=== PATIENT | female | born 1955 | race Caucasian/White ===

== ENCOUNTER 2016-08-03 07:40 | Day surgery (SDC) | payer OTHER ==
[~2016-08-03] VITALS: Ht 154.9 cm; Wt 67.1 kg
[2016-08-03 08:27] VITALS: Ht 154.9 cm; Wt 67.1 kg
[2016-08-03] MEDS ORDERED: OMEP10CA4 PO (08:34)
[2016-08-03 08:52] VITALS: BP 131/67; PULSE 67; RESP 16
[2016-08-03] MEDS ORDERED: MIDAZOLAM 1 MG/ML 2 ML INJ ONE ×2 (10:09)
[2016-08-03] MEDS ORDERED: FENTAnyl 50 MCG/ML VIAL ONE (10:09)
[2016-08-03 10:50] VITALS: BP 107/64; PULSE 74; RESP 22
--- NOTE | 2016-08-03 13:06 | GILP ---
DATE OF PROCEDURE: 08/03/2016 NAME OF PROCEDURES: 1. Esophagogastroduodenoscopy and biopsy. 2. Colonoscopy. SURGEON: Rg Robles MD PREOPERATIVE DIAGNOSES 1. Screening colonoscopy. 2. Dysphagia. POSTOPERATIVE DIAGNOSES: 1. Gastroesophageal reflux disease. 2. Gastritis. 3. Gastric mucosal biopsies were taken for Helicobacter pylori test. 4. Poor prep making the colonoscopic examination inadequate and suboptimal. 5. Redundant colon and cecum could not be reached. INDICATION FOR THE PROCEDURE: Ms. Malena Marrero is a 61-year-old female patient who had chronic heartburn and dysphagia. She also needed screening colonoscopy. The procedures and possible complications were well explained to the patient, she understood and con sented to the procedure. DESCRIPTION OF PROCEDURE: Under the influence of fentanyl and Versed, the gastroscope was carefully introduced into the esophagus and under direct vision, it was advanced to the stomach and through t he pylorus into the duodenal bulb and descending duodenum. FINDINGS: ESOPHAGUS: The patient had gastroesophageal reflux disease. There was no stricture or tumor. STOMACH: The patient had gastritis. Gastric mucosal biopsies were taken for H. pylori test. DUODENUM: Normal. The colonoscope was carefully introduced in the rectum and under direct vision, it was advanced to t he whole length of the scope. The patient had a very poor prep making the exam inadequate and subop timal. She also had redundant colon and the cecum could not be reached. The patient tolerated the procedures very well and there was no complication from the procedures. A t the end of the procedures, she was awake with stable vital signs and she was discharged home to [facility] care of her family. IMPRESSION: Please see postop diagnoses. PLAN: 1. Continue omeprazole. 2. MiraLax 17 grams dissolved in a glass of water p.o. daily. 3. Elective barium enema for the evaluation of the proximal part of the colon. Dictated By: RG OMALLEY/TATIANA Conf#: [id number] DID#: [id number]
== END 2016-08-03 12:16 | disposition home or self-care (01) ==
LOC: GIL 07:40
PROVIDERS: ATTEND Internal Medicine Gastroenterology
DX: Z12.11 Encounter for screening for malignant neoplasm of colon (principal); R13.10 Dysphagia, unspecified; K21.9 Gastro-esophageal reflux disease without esophagitis; K29.70 Gastritis, unspecified, without bleeding; Q43.8 Other specified congenital malformations of intestine
CPT/HCPCS: 43239; 45378; 87081; J2250; J3010; Z7610

== ENCOUNTER 2016-09-02 10:02 | Emergency (ER) | payer OTHER ==
[~2016-09-02] VITALS: Ht 162.6 cm; Wt 62.0 kg
[~2016-09-02 10:02] MED LIST: OMEP10CA4 PO
[2016-09-02 10:04] VITALS: Ht 162.6 cm; Wt 62.0 kg
--- NOTE | 2016-09-02 11:01 | ERD ---
ER Documentation Chief Complaint Date/Time DATE: 09/02/16 TIME: 10:59 Chief Complaint pt bib family with c/o cough x 2 months already seen PMD HPI This is a 61-year-old female who presents to the emergency department today complaining of a productive cough for the past month. Patient had what he seen her primary care doctor and was given medication. States she is unsure what the medication is. States she has tried dsak-upa-smzlova Robitussin that has had no improvement. Denies any fevers or chills. ROS All systems reviewed and are negative except as per history of present illness. Medications Home Meds Active Scripts Cetirizine Hcl* (Zyrtec*) 10 Mg Capsule, 10 MG PO DAILY, #10 TAB.CHEW Prov:MIGUEL TRAN-C 09/02/16 Benzonatate* (Tessalon Perle*) 100 Mg Capsule, 100 MG PO Q8H Y for COUGH for 7 Days, CAP Prov:PROMIGUEL GEORGES-C 09/02/16 Guaifenesin (Mucinex) 1,200 Mg Tab.er.12h, 1200 MG PO BID for 7 Days, TAB Prov:MIGUEL TRAN-C 09/02/16 Azithromycin* (Zithromax*) 250 Mg Tablet, 250 MG PO .TishaPACK DIRECTED, #6 TAB TAKE 500 MG (2 TABS) THE FIRST DAY THEN 250 MG (1 TAB) DAYS 2-5 Prov:MIGUEL TRAN-C 09/02/16 Reported Medications Omeprazole* (Omeprazole*) 10 Mg Capsule.dr, 10 MG PO DAILY, #30 CAP 08/03/16 [none] No Conflict Check 09/15/09 Allergies Allergies: Coded Allergies: No Known Allergies (Verified Allergy, Mild, 09/02/16) PMhx/Soc History of Surgery: Yes (chlolecystectomy-8 years ago) Anesthesia Reaction: No Hx Neurological Disorder: No Hx Respiratory Disorders: No Hx Cardiac Disorders: No Hx Psychiatric Problems: No Hx Miscellaneous Medical Probl: No Hx Alcohol Use: No Hx Substance Use: No Hx Tobacco Use: No Smoking Status: Never smoker Physical Exam Vitals Vital Signs Date Time Temp Pulse Resp B/P Pulse Ox O2 Delivery O2 Flow Rate FiO2 09/02/16 10:04 98.3 84 16 157/62 98 Physical Exam Const: No acute distress Head: Atraumatic Eyes: Normal Conjunctiva ENT: Normal External Ears, Nose and Mouth. Neck: Full range of motion..~ No meningismus. Resp: Clear to auscultation bilaterally. No absent breath sounds. No wheezing. Cardio: Regular rate and rhythm, no murmurs Abd: Soft, non tender, non distended. Normal bowel sounds Skin: No petechiae or rashes Neur: Awake and alert Psych: Normal Mood and Affect Results 24 hrs Patient: DIO HANDLEY : 1955 Age: 61 Sex: F MR #: [id number] DOS: 09/02/16 0000 Ordering MD: MIGUEL TRAN PA-C Location: [facility] Room/Bed: PROCEDURE: XR Chest AP portable CLINICAL INDICATION: Cough x1 month TECHNIQUE: An AP portable radiograph of the chest was submitted. COMPARISON: None. FINDINGS: Support Hardware: None Cardiovascular: The cardiovascular silhouette appears unremarkable. Lung Gramajo: The lung gramajo appear clear with no nodule, alveolar infiltrate, or interstitial prominence evident. Pleural Spaces: No pneumothorax or pleural effusion is identified. Osseous Structures: The osseous structures appear intact. Soft Tissues: The soft tissues appear unremarkable. IMPRESSION: Unremarkable portable chest. Physician Ramona Date Time Electronically viewed and signed by Physician Ramona on 09/02/2016 11:25 RH/ CC: MIGUEL TRAN PA-C Procedures/MDM This is a 61-year-old female who presents to the emergency department today complaining of a cough for the past month. Patient had been seen by her primary care doctor was given medication however she was unsure what it is. I did obtain a chest x-ray today Chest x-ray is negative. Low suspicion for pneumonia, PE, abscess,, pleural effusion pneumothorax. Patient is afebrile and otherwise well-appearing. Her oxygen saturation 98%. Her respirations are 16. She has no wheezing on physical exam. I do not feel the patient requires a breathing treatment at this time. Patient has a cough of uncertain etiology at this time however patient will be given a prescription for azithromycin to treat possible bronchitis versus pertussis. Patient also be given a prescription for Zyrtec, Mucinex and Tessalon Perles. At this time the patient is stable for discharge and outpatient management. Patient should follow up with their PCP in the next 1-2 days for referral to pulmonology. They may return to the emergency department sooner for any persistent or worsening of symptoms. Patient understood and agreed with the plan. Departure Diagnosis: Primary Impression: Cough Condition: MIGUEL Diamond PA-C Sep 02, 2016 11:01
--- NOTE | 2016-09-02 11:25 | RADRPT ---
PROCEDURE: XR Chest AP portable CLINICAL INDICATION: Cough x1 month TECHNIQUE: An AP portable radiograph of the chest was submitted. COMPARISON: None. FINDINGS: Support Hardware: None Cardiovascular: The cardiovascular silhouette appears unremarkable. Lung Sifuentes: The lung sifuentes appear clear with no nodule, alveolar infiltrate, or interstitial promi nence evident. Pleural Spaces: No pneumothorax or pleural effusion is identified. Osseous Structures: The osseous structures appear intact. Soft Tissues: The soft tissues appear unremarkable. IMPRESSION: Unremarkable portable chest. Physician Ramona Date Time Electronically viewed and signed by Serafin Mercer Physician on 09/02/2016 11:25 RH/
[2016-09-02] MEDS ORDERED: BENZ100C70 PO (12:17)
[2016-09-02] MEDS ORDERED: AZIT250T94 PO (12:17)
[2016-09-02] MEDS ORDERED: GUAI120011 PO (12:17)
[2016-09-02] MEDS ORDERED: CETI10CA PO (12:18)
[2016-09-02 12:26] VITALS: BP 148/67; PULSE 80; RESP 16; TEMP 98.3
== END 2016-09-02 12:26 | disposition home or self-care (01) ==
LOC: FTE 10:02
DX: R05 Cough (principal)
CPT/HCPCS: 71010; Z7502

== ENCOUNTER 2016-10-02 08:17 | Emergency (ER) | payer OTHER ==
[~2016-10-02] VITALS: Wt 70.0 kg
[~2016-10-02 08:17] MED LIST changes: +AZIT250T94 PO; +BENZ100C70 PO; +CETI10CA PO; +GUAI120011 PO
[2016-10-02] MEDS ORDERED: ONDANSETRON 4 MG INJ IV STA (08:41)
[2016-10-02] MEDS ORDERED: morphine 4 MG/ML VIAL IV STA (08:41)
--- NOTE | 2016-10-02 08:53 | ERD ---
ER Documentation Chief Complaint Date/Time DATE: 10/02/16 TIME: 08:43 Chief Complaint right flank pain for 3 days with nausea no vomiting. no hematuria HPI This is a 61-year-old Faroese-speaking female with no past medical history that presents to the emergency department complaining of right flank pain for the past 3 days. The patient states that the pain is worse at night. She has taken tigh-nxc-ihgljef analgesic medication with no improvement of her symptoms. She stated that just prior to arrival the pain began to radiate to her right lower quadrant. She denies any dysuria or gross hematuria but has complained of urinary frequency for the past 3 days. The patient indicated she had a recent colonoscopy 3 months prior to arrival but does not know the results. She has no shortness of breath at rest or exertion. She denies any chest pain or pressure. She states that the pain is a sharp shooting pain. She states there is no alleviating or exacerbating factors. She has had no fevers shaking no chills. She denies any hemoptysis hematemesis or melanotic stools. She denies any nausea. She denies any recent or remote trauma ROS All systems reviewed and are negative except as per history of present illness. Medications Home Meds Discontinued Reported Medications Omeprazole* (Omeprazole*) 10 Mg Capsule.dr, 10 MG PO DAILY, #30 CAP 08/03/16 [none] No Conflict Check 09/15/09 Discontinued Scripts Cetirizine Hcl* (Zyrtec*) 10 Mg Capsule, 10 MG PO DAILY, #10 TAB.CHEW Prov:MIGUEL TRAN-C 09/02/16 Benzonatate* (Tessalon Perle*) 100 Mg Capsule, 100 MG PO Q8H Y for COUGH for 7 Days, CAP Prov:PROMIGUEL GEORGES-C 09/02/16 Guaifenesin (Mucinex) 1,200 Mg Tab.er.12h, 1200 MG PO BID for 7 Days, TAB Prov:MIGUEL TRAN-C 09/02/16 Azithromycin* (Zithromax*) 250 Mg Tablet, 250 MG PO .GOLD DIRECTED, #6 TAB TAKE 500 MG (2 TABS) THE FIRST DAY THEN 250 MG (1 TAB) DAYS 2-5 Prov:MIGUEL TRAN-C 09/02/16 Allergies Allergies: Coded Allergies: No Known Allergies (Verified Allergy, Mild, 09/02/16) PMhx/Soc History of Surgery: Yes (chlolecystectomy-8 years ago) Anesthesia Reaction: No Hx Neurological Disorder: No Hx Respiratory Disorders: No Hx Cardiac Disorders: No Hx Psychiatric Problems: No Hx Miscellaneous Medical Probl: No Hx Alcohol Use: No Hx Substance Use: No Hx Tobacco Use: No Smoking Status: Never smoker Physical Exam Vitals Vital Signs Date Time Temp Pulse Resp B/P Pulse Ox O2 Delivery O2 Flow Rate FiO2 10/02/16 08:20 98.0 69 21 160/81 99 Physical Exam Constitutional:Well-developed. Well-nourished. HEENT:Normocephalic. Atraumatic.Pupils were equal round reactive to light. Moist mucous membranes.No tonsillar exudates. Neck: No nuchal rigidity. No lymphadenopathy. No posterior cervical spine tenderness or step-offs. Respiratory: Not using accessory muscles of respiration.Lungs were clear to auscultation bilaterally. No rhonchi. No rales. No wheezing. Cardiovascular: Regular rate regular rhythm.No murmurs. No rubs were appreciated.S1, S2 normal. Distal pulses are palpable 2+ bilaterally. GI: Abdomen was soft. Right CVA tenderness with minimal tenderness in the right lower quadrant with negative psoas and obturator sign. Non Distended. No pulsatile abdominal masses or bruits. No rebound. No guarding. Bowel sounds were present and normal. Muscle skeletal: Full range of motion of both the upper and lower extremities bilaterally.Normal muscle tone.No assymetrical calf tenderness or swelling. No tenderness to palpation or percussion of the thoracic or lumbar spinous processes Skin: No petechia, no purpura. No lesions on the palms or the soles of the feet. No maculopapular rash. NEURO: Patient was alert, awake, orientated x3.No facial droop. Gait observed and normal with no ataxia.Speech had regular rate and rhythm. No focal neurological deficits. Result Diagram: 10/02/1685410/02/1655 Results 24 hrs Laboratory Tests Test 10/02/16 08:50 10/02/16 08:55 Urine Color LT. YELLOW Urine Clarity CLEAR Urine pH 5.5 Urine Specific [place] 1.010 Urine Ketones NEGATIVE Urine Nitrite NEGATIVE Urine Bilirubin NEGATIVE Urine Urobilinogen 0.2 E.U./dL Urine Leukocyte Esterase TRACE Urine Microscopic RBC 0-2/HPF Urine Microscopic WBC 0-2/HPF Urine Epithelial Cells FEW Urine Bacteria FEW Urine Hemoglobin NEGATIVE Urine Glucose NEGATIVE% Urine Total Protein NEGATIVE White Blood Count 5.210^3/ul Red Blood Count 4.5310^6/ul Hemoglobin 13.9g/dl Hematocrit 39.9% Mean Corpuscular Volume 88.1fl Mean Corpuscular Hemoglobin 30.7pg Mean Corpuscular Hemoglobin Concent 34.8g/dl Red Cell Distribution Width 11.9% Platelet Count 14378^3/UL Mean Platelet Volume 10.1fl Neutrophils % 64.1% Lymphocytes % 24.3% Monocytes % 8.5% Eosinophils % 2.5% Basophils % 0.4% Nucleated Red Blood Cells % 0.0/100WBC Neutrophils # 3.310^3/ul Lymphocytes # 1.310^3/ul Monocytes # 0.410^3/ul Eosinophils # 0.110^3/ul Basophils # 0.010^3/ul Nucleated Red Blood Cells # 0.010^3/ul Prothrombin Time 12.6Sec Prothrombin Time Ratio 1.0 INR International Normalized Ratio 0.94 Activated Partial Thromboplast Time 29.5Sec Sodium Level 139mmol/L Potassium Level 3.7mmol/L Chloride Level 107mmol/L Carbon Dioxide Level 24mmol/L Anion Gap 12 Blood Urea Nitrogen 11mg/dl Creatinine 0.66mg/dl Glucose Level 113mg/dl Calcium Level 9.3mg/dl Total Bilirubin 0.5mg/dl Direct Bilirubin 0.00mg/dl Indirect Bilirubin 0.5mg/dl Aspartate Amino Transf (AST/SGOT) 37IU/L Alanine Aminotransferase (ALT/SGPT) 39IU/L Alkaline Phosphatase 81IU/L Troponin I < 0.012ng/ml Total Protein 8.1g/dl Albumin 4.1g/dl Globulin 4.00g/dl Albumin/Globulin Ratio 1.02 Amylase Level 66U/L Lipase 43U/L Current Medications Medications (Trade) Dose Ordered Sig/Sandra Route PRN Reason Start Time Stop Time Status Last Admin Dose Admin Morphine Sulfate (morphine) 4 mg ONCE STAT IV 10/02/16 08:41 10/02/16 08:43 DC 10/02/16 09:01 Ondansetron HCl (Zofran Inj) 4 mg ONCE STAT IV 10/02/16 08:41 10/02/16 08:43 DC 10/02/16 09:01 IV Flush 10 ml 10 ml STK-MED ONCE .ROUTE 10/02/16 10:16 10/02/16 10:17 DC Sodium Chloride (NS) 100 ml @ ud STK-MED ONCE .ROUTE 10/02/16 10:16 10/02/16 10:17 DC Iohexol (Omnipaque 300mg/ ml) 150 ml STK-MED ONCE .ROUTE 10/02/16 10:16 10/02/16 10:17 DC Procedures/MDM This patient presented to the emergency department with abdominal pain and was seen and evaluated by myself. My differential diagnosis included but was not limited to abdominal aortic aneurysm, appendicitis, pancreatitis, perforated peptic ulcer, perforated viscus, Boerhaaves syndrome or visceral pain such as diverticulitis, DKA, esophagitis, hepatitis or bowel obstruction. The patient was placed on a field research assistant, continuous pulse oximetry, and IV access was established by nursing staff. 12 Lead EKG tracing ordered and reviewed by myself showed: Normal sinus rhythm of 60 bpm and no arrhythmia. PA interval normal. QRS duration normal. No ST segment elevation No ST segment depression. No changes consistent with acute ischemia. I reviewed the patient's medical records and the patient had an upper endoscopy with biopsy and colonoscopy performed August 03, 2016. The patient had gastritis and biopsies have been taken for H. pylori. The patient had a redundant colon and the cecum could not be reached. The patient does have an appointment on October 03, 2016 at 9:10 AM, tomorrow with her primary care physician at [facility] with Dr. Herrmann. I obtained a CT scan of the abdomen with IV contrast given that the patient did have tenderness in the right lower quadrant there is no evidence of appendicitis. CT scan was reviewed by both myself and the radiologist and the patient had a previous cholecystectomy but there was also no evidence of bowel obstruction and the patient did not have peritoneal signs to suggest a surgical abdomen on my physical exam. The patient had no leukocytosis or electrolyte abnormalities. There is no evidence of a urinary tract infection as the patient had been complaining of frequency the patient's pain had improved with intravenous morphine and Zofran. I did indicate to the patient that this could be muscle skeletal in origin but I did not have an exact etiology into the cause of the patient's pain. They will follow up with her primary care physician with her instructed appointment tomorrow to receive the biopsies that have been taken for possible H. pylori. The patient was discharged home in fair condition. They were instructed to return to the emergency department at any time if there was any worsening of their condition. The patient stated they would follow up with their PCP in the next 24-48 hours to initiate a suitable medication regimen under the care of their PCP as well as to allow their PCP to monitor any drug reactions. The patient was discharged home with prescriptions after they gave informed consent to the new medication. They were also fully informed by myself on the adverse effects and adverse drug interactions in order to provide adequate safeguards to prevent possible adverse reactions to medications. Departure Diagnosis: Primary Impression: Flank pain Condition: Fair CANDICE ALVAREZ Oct 02, 2016 08:53
[2016-10-02 09:13] LABS: ADD SCAN DIFF NO
[2016-10-02 09:20] LABS: ADD UMIC YES; URINE BILIRUBIN (Dip) NEGATIVE (NEGATIVE); URINE BLOOD (Dip) NEGATIVE (NEGATIVE); URINE COLOR LT. YELLOW (YELLOW); URINE GLUCOSE (Dip) NEGATIVE (NEGATIVE); URINE KETONES (Dip) NEGATIVE (NEGATIVE); URINE LEUKOCYTE ESTERASE (Dip) TRACE (NEGATIVE); URINE NITRITE (Dip) NEGATIVE (NEGATIVE); URINE TOTAL PROTEIN (Dip) NEGATIVE (NEGATIVE); URINE UROBILINOGEN (Dip) 0.2 E.U./dL (0.1-1.0)
[2016-10-02 09:24] LABS: BASOPHILS % 0.4 % (0.0-2.0); EOSINOPHILS # 0.1 10^3/ul (0.0-0.5); EOSINOPHILS % 2.5 % (0.0-7.0); HEMATOCRIT 39.9 % (37.0-47.0); HEMOGLOBIN 13.9 g/dl (12.0-16.0); LYMPHOCYTES # 1.3 10^3/ul (0.8-2.9); LYMPHOCYTES % 24.3 % (15.0-51.0); MEAN CORPUSCULAR HEMOGLOBIN 30.7 pg (29.0-33.0); MEAN CORPUSCULAR HGB CONC 34.8 g/dl (32.0-37.0); MEAN CORPUSCULAR VOLUME 88.1 fl (82.0-101.0); MEAN PLATELET VOLUME 10.1 fl (7.4-10.4); MONOCYTE # 0.4 10^3/ul (0.3-0.9); MONOCYTES % 8.5 % (0.0-11.0); NEUTROPHIL # 3.3 10^3/ul (1.6-7.5); NEUTROPHILS % 64.1 % (39.0-77.0); PLATELET COUNT 231 10^3/UL (140-415); RED BLOOD COUNT 4.53 10^6/ul (4.20-5.40); RED CELL DISTRIBUTION WIDTH 11.9 % (11.5-14.5); WHITE BLOOD COUNT 5.2 10^3/ul (4.8-10.8)
[2016-10-02 09:27] LABS: ALBUMIN 4.1 g/dl (3.3-4.9); CHLORIDE 107 mmol/L (97-110); INR 0.94; PROTIME 12.6 Sec (12.2-14.2); SODIUM 139 mmol/L (135-144)
[2016-10-02 09:28] LABS: PARTIAL THROMBOPLASTIN TIME 29.5 Sec (25.0-35.0); POTASSIUM 3.7 mmol/L (3.5-5.1)
[2016-10-02 09:30] LABS: ALBUMIN/GLOBULIN RATIO 1.02; ALKALINE PHOSPHATASE 81 IU/L (42-121); AMYLASE 66 U/L (11-123); ANION GAP 12 (8-16); ASPARTATE AMINO TRANSFERASE 37 IU/L (15-46); BILIRUBIN,INDIRECT 0.5 mg/dl (0-1.1); BILIRUBIN,TOTAL 0.5 mg/dl (0.2-1.3); BLOOD UREA NITROGEN 11 mg/dl (7-20); CARBON DIOXIDE 24 mmol/L (21-31); CREATININE 0.66 mg/dl (0.44-1.00); TOTAL PROTEIN 8.1 g/dl (6.1-8.1)
[2016-10-02 09:31] LABS: ALANINE AMINOTRANSFERASE 39 IU/L (13-69); CALCIUM 9.3 mg/dl (8.4-10.2); GLUCOSE 113 mg/dl (70-220)
[2016-10-02 09:36] LABS: BACTERIA,URINE FEW; URINE RBCS 0-2 /HPF ([, 0])
[2016-10-02 09:43] LABS: TROPONIN-I < 0.012 ng/ml (0.00-0.12)
[2016-10-02] MEDS ORDERED: IOHEXOL 300MG/ML 150 ML BTL ONE (10:16)
[2016-10-02] MEDS ORDERED: SOD CHLORIDE 0.9% 100 ML ONE (10:16)
--- NOTE | 2016-10-02 10:41 | RADRPT ---
PROCEDURE: CT abdomen and pelvis with contrast. CLINICAL INDICATION: Abdominal pain. Right flank pain. TECHNIQUE: CT scan of the abdomen and pelvis with contrast [facility] The patient was scanned following the uncomplicated intravenous administration 90 cc of Omnipaq ue 300. Coronal and sagittal reformatted images were obtained from the axial source images. One or more of the following does reduction techniques were used: Automated exposure control; adjustment o f the mA and/or kV according to patient size; use of the aorta of reconstruction technique. Images w ere reviewed on a high-resolution PACS workstation. The total exam CTDI equals 9.39 mGy and the tota l exam DLP equals 514.01 mGy-cm. COMPARISON: CT abdomen pelvis 08/19/2013 FINDINGS: Evaluation of the lung bases is limited by breathing artifact. No infiltrate or effusion is seen. The heart size is normal, without pericardial thickening or effusion. Evaluation of the upper abdomen is limited by breathing artifact. The liver, spleen, and pancreas a re grossly within normal limits. The gallbladder is surgically absent. The right adrenal gland is not visualized. There is no obvious adrenal mass. The left adrenal glan d is normal. The kidneys show normal and symmetric enhancement. No renal calculus or obstructive u ropathy is seen. The aorta is of normal caliber. Atherosclerotic calcifications are present. There is no retroperito donavan lymph node enlargment. There is no evidence of large or small bowel obstruction. Portions of a normal appendix are seen. T he entire organ is not visualized, however there is no secondary evidence of acute appendicitis No f ree fluid or fluid collections are identified. No inflammatory changes are seen. The uterus is present. The bladder is distended but otherwise within normal limits There is no hilario dence of pelvic sidewall lymph node enlargement. There is no pelvic free fluid. The inguinal regio ns are unremarkable. The osseous structures are intact. IMPRESSION: 1. No CT evidence of mass, lymphadenopathy, or inflammatory change in the abdomen or pelvis. 2. Atherosclerotic vascular disease. 3. Status post cholecystectomy. RPTAT: KK .Kenneth Cerna MD, Date Time Electronically viewed and signed by .Kenneth Cerna MD, on 10/02/2016 10:40 .B/
[2016-10-02] MEDS ORDERED: DICLOFENAC SODIUM 37.5 MG/ML VIAL IV STA (10:48)
[2016-10-02] MEDS ORDERED: NAPR-260 PO (10:49)
[2016-10-02 11:22] VITALS: BP 150/73; PULSE 62; RESP 18
== END 2016-10-02 11:23 | disposition home or self-care (01) ==
LOC: E/R 08:17
DX: R10.31 Right lower quadrant pain (principal); R11.2 Nausea with vomiting, unspecified
CPT/HCPCS: 74177; 80053; 81001; 82150; 83690; 84484; 85025; 85610; 85730; 87086; 93005; J2270; J2405; Q9967; Z7610; 81003; 96374; 96375

== ENCOUNTER 2018-12-15 10:28 | Emergency (ER) | payer OTHER ==
[~2018-12-15] VITALS: Ht 165.1 cm; Wt 68.7 kg
[~2018-12-15 10:28] MED LIST changes: -AZIT250T94 PO; -BENZ100C70 PO; -CETI10CA PO; -GUAI120011 PO; +NAPR-985 PO; -OMEP10CA4 PO
[2018-12-15 10:33] VITALS: Ht 165.1 cm; Wt 68.7 kg
--- NOTE | 2018-12-15 14:00 | ERD ---
ER Documentation Chief Complaint Chief Complaint DIZZINESS AND HYPERTENSION HPI This is a 63-year-old female with history of hypertension who presents with intermittent vertiginous dizziness, she also noted that her blood pressure was in the 170 systolic. She denies any chest pain or shortness of breath. She has not had any speech changes, no confusion, no weakness. ROS All systems reviewed and are negative except as per history of present illness. Medications Home Meds No Active Prescriptions or Reported Meds Allergies Allergies: Coded Allergies: No Known Allergies (Verified Allergy, Mild, 09/02/16) PMhx/Soc Medical and Surgical Hx: pt denies Medical Hx History of Surgery: Yes (chlolecystectomy) Anesthesia Reaction: No Hx Neurological Disorder: No Hx Respiratory Disorders: No Hx Cardiac Disorders: No Hx Psychiatric Problems: No Hx Miscellaneous Medical Probl: No Hx Alcohol Use: No Hx Substance Use: No Hx Tobacco Use: No Smoking Status: Never smoker Physical Exam Vitals Vital Signs Date Temp Pulse Resp B/P (MAP) Pulse Ox O2 O2 Flow FiO2 Time Delivery Rate 12/15/18 58 16 151/78 98 Room Air 12:14 (102) 12/15/18 97.8 78 16 176/80 99 10:33 (112) Physical Exam Const: No acute distress Head: Atraumatic Eyes: Normal Conjunctiva ENT: Normal External Ears, Nose and Mouth. Neck: Full range of motion. No meningismus. Resp: Clear to auscultation bilaterally, no wheezes rales rhonchi Cardio: Regular rate and rhythm, no murmurs, no JVD Abd: Soft, non tender, non distended. Normal bowel sounds Skin: No petechiae or rashes Back: No midline or flank tenderness Ext: No cyanosis, or edema Neur: Alert and oriented x4, cranial nerves II 12 intact, no cerebellar at axia, strength 5 out of 5 bilaterally Psych: Normal Mood and Affect Result Diagram: 12/15/18 1130 12/15/18 1130 Results 24 hrs Laboratory Tests Test 12/15/18 11:30 12/15/18 11:54 White Blood Count 5.1 10^3/ul Red Blood Count 4.31 10^6/ul Hemoglobin 12.9 g/dl Hematocrit 38.2 % Mean Corpuscular Volume 88.6 fl Mean Corpuscular Hemoglobin 29.9 pg Mean Corpuscular Hemoglobin Concent 33.8 g/dl Red Cell Distribution Width 11.9 % Platelet Count 246 10^3/UL Mean Platelet Volume 10.3 fl Immature Granulocytes % 0.200 % Neutrophils % 60.7 % Lymphocytes % 24.1 % Monocytes % 12.2 % Eosinophils % 2.4 % Basophils % 0.4 % Nucleated Red Blood Cells % 0.0 /100WBC Immature Granulocytes # 0.010 10^3/ul Neutrophils # 3.1 10^3/ul Lymphocytes # 1.2 10^3/ul Monocytes # 0.6 10^3/ul Eosinophils # 0.1 10^3/ul Basophils # 0.0 10^3/ul Nucleated Red Blood Cells # 0.0 10^3/ul Prothrombin Time 12.6 Sec Prothrombin Time Ratio 1.0 INR International Normalized Ratio 0.93 Sodium Level 146 mmol/L Potassium Level 3.8 mmol/L Chloride Level 111 mmol/L Carbon Dioxide Level 26 mmol/L Anion Gap 9 Blood Urea Nitrogen 15 mg/dl Creatinine 0.64 mg/dl Est Glomerular Filtrat Rate mL/min > 60 mL/min Glucose Level 135 mg/dl Calcium Level 9.3 mg/dl Total Bilirubin 0.5 mg/dl Direct Bilirubin 0.00 mg/dl Indirect Bilirubin 0.5 mg/dl Aspartate Amino Transf (AST/SGOT) 27 IU/L Alanine Aminotransferase (ALT/SGPT) 28 IU/L Alkaline Phosphatase 69 IU/L Troponin I < 0.012 ng/ml Total Protein 8.0 g/dl Albumin 4.0 g/dl Globulin 4.00 g/dl Albumin/Globulin Ratio 1.00 Bedside Urine pH (LAB) 8.5 Bedside Urine Protein (LAB) Negative Bedside Urine Glucose (UA) Negative Bedside Urine Ketones (LAB) Negative Bedside Urine Blood Negative Bedside Urine Nitrite (LAB) Negative Bedside Urine Leukocyte Esterase (L Negative Procedures/MDM This is a 63-year-old female presents for evaluation of dizziness and hypertension. In the ED patient blood pressure was in the 140s systolic, with a map of 90. She had no signs or symptoms of hypertensive emergency, and essentially had asymptomatic hypertension. Labs reviewed overall unremarkable, no evidence of leukocytosis or metabolic acidosis. CT brain was also negative for acute findings. She had no signs or symptoms of a central cause for her dizziness. I discussed findings with patient, who felt comfortable with discharge home and will follow up with primary care doctor. At discharge she was in no distress. EKG: Rate/Rhythm: Normal Sinus Rhythm QRS, ST, T-waves: No changes consistent w/ acute ischemia Impression: No evidence of ischemia or arrhythmia Departure Diagnosis: Primary Impression: Dizziness Condition: Stable ZECHARIAH CORONA MD Dec 15, 2018 14:00
[2018-12-15 15:04] VITALS: BP 146/82; PULSE 66; RESP 18
== END 2018-12-15 15:06 | disposition home or self-care (01) ==
LOC: E/R 10:28
DX: I10 Essential (primary) hypertension (principal)
CPT/HCPCS: 70450; 71045; 80053; 81003; 84484; 85025; 85610; Z7502